=== PATIENT | male | born 1980 | race Asian ===

== ENCOUNTER 2018-08-04 20:41 | Emergency (ER) | payer BC ==
[~2018-08-04] VITALS: Ht 162.6 cm; Wt 71.2 kg
[2018-08-04 20:49] VITALS: BP_SYST 130
--- NOTE | 2018-08-04 20:54 | NUR ---
Pt placed to ER waiting room in stable condition.
--- NOTE | 2018-08-04 21:44 | NUR ---
Pt placed to ER bed 03, report given to EUSEBIA Escobedo.
--- NOTE | 2018-08-04 21:59 | NUR ---
Pt came in complaining of R arm pain, specificially in his right bicep this past week. Pt says he feels a knot and swelling. Pt is worried that he has a potential blood clot. He states that he will be travelling on a plane soon. Denies any pain , trauma or any other complaints. Will cont. to monitor.
--- NOTE | 2018-08-04 22:24 | NUR ---
Ultrasound took pt via ambulation. Tolerating well.
--- NOTE | 2018-08-05 00:11 | NUR ---
Pt left without discharge papers.
[2018-08-05 00:51] VITALS: BP_SYST 130
== END 2018-08-05 00:11 | disposition home or self-care (01) ==
LOC: SED 20:41
DX: M79.601 Pain in right arm (principal); R03.0 Elevated blood-pressure reading, without diagnosis of hypertension
CPT/HCPCS: 93971; 99284